=== PATIENT | male | born 1995 | race Caucasian/White ===

== ENCOUNTER 2025-02-18 23:11 | Emergency (ER) | payer MEDICAID ==
[~2025-02-18] VITALS: Ht 185.4 cm; Wt 81.6 kg
[2025-02-19] MEDS ORDERED: ONDANSETRON HCL/PF 4 MG/2 ML VIAL ONE (01:12)
[2025-02-19] MEDS ORDERED: KETOROLAC TROMETHAMINE 15 MG/ML VIAL ONE (01:12)
[2025-02-19] MEDS ORDERED: ACETAMINOPHEN ES 500 MG TABLET ONE (01:12)
[2025-02-19] MEDS: IV NS 0.9% 1,000 ML BAG IV ONE (01:16)
[2025-02-19] MEDS: ACETAMINOPHEN ES 500 MG TABLET PO ONE (01:16)
[2025-02-19] MEDS: KETOROLAC TROMETHAMINE 15 MG/ML VIAL IV ONE (01:17)
[2025-02-19] MEDS: ONDANSETRON HCL/PF 4 MG/2 ML VIAL IVP ONE (01:17)
[2025-02-19] MEDS ORDERED: AMOX500C2 PO (02:38)
[2025-02-19] MEDS ORDERED: ONDA4TAB11 PO (02:38)
[2025-02-19] MEDS ORDERED: IBUP-1957 PO (02:38)
[2025-02-19] MEDS ORDERED: ACET-73 PO (02:38)
[2025-02-19] MEDS ORDERED: AMOXICILLIN TRIHYDRATE 250 MG CAPSULE ONE (02:47)
[2025-02-19] MEDS: AMOXICILLIN TRIHYDRATE 500 MG CAPSULE PO ONE (02:48)
[2025-02-19 02:49] VITALS: BP 147/73; TEMP 211.6; O2SAT 99
== END 2025-02-19 02:50 | disposition home or self-care (01) ==
LOC: ER 23:43
DX: J02.0 Streptococcal pharyngitis (principal); B97.89 Other viral agents as the cause of diseases classified elsewhere; J35.8 Other chronic diseases of tonsils and adenoids; Z20.822 Contact with and (suspected) exposure to COVID-19
CPT/HCPCS: 99284; 96374; 96361; 96375; 87426; 87804 ×2; 87880; J1885; J2405; 86403-TC